=== PATIENT | male | born 1945 | race Caucasian/White ===

== ENCOUNTER → 2019-06-02 | Outpatient (CLI) | payer MEDICARE ==
[~2019-06-02] MED LIST: ASCO500 PO; ESOM20 PO; LEVSOD75 PO; LOSA25 PO; MULVITMIND PO; NAPR220 PO; OXYACE5T PO; PROBIOTIC1 EAC1 PO; ROSU10TA PO; Saw Palmetto160 MG PO; Zofran4 MG PO
== END | disposition home or self-care (01) ==
LOC: LAB SHORT 12:24 → LAB EV 12:24
DX: J03.90 Acute tonsillitis, unspecified (principal)
CPT/HCPCS: 87081

== ENCOUNTER → 2019-06-10 | Outpatient (CLI) | payer MEDICARE | END | disposition home or self-care (01) | LOC: LAB EV 12:56 → LAB SHORT 12:56 | DX: J03.90 Acute tonsillitis, unspecified (principal) | CPT/HCPCS: 87081 ==

== ENCOUNTER 2020-08-06 07:39 | Day surgery (SDC) | payer MEDICARE ==
[~2020-08-06] VITALS: Ht 170.2 cm; Wt 85.0 kg
[~2020-08-06 07:39] MED LIST changes: +ATOR20 PO; +Aspir 8181 MG PO; +TAMS.4ER PO
== END 2020-08-06 10:03 | disposition home or self-care (01) ==
LOC: ORSCSDS 07:39
PROVIDERS: Student in an Organized Health Care Education/Training Program
PROC: 0DB48ZX Excision of Esophagogastric Junction, Via Natural or Artificial Opening Endoscopic, Diagnostic (ICD-10-PCS; principal; 2020-08-06 09:00)
PROC: 0DB68ZX Excision of Stomach, Via Natural or Artificial Opening Endoscopic, Diagnostic (ICD-10-PCS; principal; 2020-08-06 09:00)
PROC: 0DBK8ZX Excision of Ascending Colon, Via Natural or Artificial Opening Endoscopic, Diagnostic (ICD-10-PCS; principal; 2020-08-06 09:00)
DX: K21.9 Gastro-esophageal reflux disease without esophagitis (principal); K22.70 Barrett's esophagus without dysplasia; K31.7 Polyp of stomach and duodenum; D12.2 Benign neoplasm of ascending colon; Z12.11 Encounter for screening for malignant neoplasm of colon; K57.30 Diverticulosis of large intestine without perforation or abscess without bleeding; E03.9 Hypothyroidism, unspecified; I10 Essential (primary) hypertension; E78.5 Hyperlipidemia, unspecified; Z79.82 Long term (current) use of aspirin; Z79.899 Other long term (current) drug therapy
CPT/HCPCS: 88305; J2704; J7040; J7120